=== PATIENT | female | born 1995 | race Caucasian/White ===

== ENCOUNTER 2024-12-24 17:27 | Emergency (ER) | payer MEDICAID, SELFPAY ==
--- OUTSIDE RECORDS SUMMARY | 2024-12-24 17:33 | XMS_ITS | Clinical Summary ---
Author Organization [email or web address] Address [address] Attn: Epic Prelude ADT [place] SIMON [address] Care Team Providers Care Wire Bender Name Role Phone Tracey Escoto MD Primary Care Provider [phone]- [phone] Allergies No known active allergies Medications PNV#16-Iron Fum & PS-FA-OM-3 35-1-200 mg CapsuleIndicati ons:, incidental Take 1 Capsule by mouth daily. 30 Capsule PRN 05/28/2017 Active Active Problems Problem Noted Date Diagnosed Date Atypical mole 02/12/2012 Primary genital herpes simplex infection 012 Overview (10/18/2020): Primary infection 11/27/2011 Resolved Problems Problem Noted Date Diagnosed Date Resolved Date , incidental 02/10/20122016 Overview (10/17/2020): LMP 12/21/11; EDC 09/26/12 Severe major depression with psychotic features 11/08/2010 05/28/2017 Overview (10/17/2020): History of admission to [facility] in [place] after attempting suicide by taking 4600 mg of amantadine. High risk sexual behavior Overview (10/17/2020): Sexually active since age 11. Immunizations Immunization Administration Dates Next Due (TDVAX)(7 YRS UP) TETANUS AN D DIPHTHERIA TOXOIDS, ADSORBED (2 LF OF TETANUS TOXOID AND 2 LF OF DIPHTHERIA TOXOID), 0.5ML (PF), IM 02/23/2002 HPV Vaccine 3 Dose IM VFC 02/28/2009 Family History Medical History Relation Name Comments Healthy Father Healthy Mother Other Mother Breast Cancer Other Relation Name Status Comments Father Alive Mother Alive Other Other maternal great grandmother Social History Tobacco Use Types Packs/Day Years Used Date Smoking Tobacco: Every Day Cigarettes Smokeless Tobacco: Never Alcohol Use Standard Drinks/Week Comments Yes 0 (1 standard drink = 0.6 oz pur e alcohol) Comments Unknown Sex and Gender Information Value Date Recorded Sex Assigned at Not on file Legal Sex Female 9:16 AM PLAY WRITER Gender Identity Not on file Sexual Orientation Not on file Last Filed Vital Signs Vital Sign Reading Time Taken Comments Blood Pressure 130/76 05/15/2020 10:56 AM PLAY WRITER Pulse 100 05/28/2017 10:30 AM PLAY WRITER Temperature 36.3 C (97.4 F) 09/13/2017 1:01 AM CDT Respiratory Rate 16 09/13/2017 1:01 AM CDT Oxygen Saturation - - Inhaled Oxygen Concentration - - Weight 54.4 kg (120 lb) 05/15/2020 10:56 AM PLAY WRITER Height 157.5 cm (5' 2 ) 05/15/2020 10:56 AM PLAY WRITER Body Mass Index 21.95 05/15/2020 10:56 AM PLAY WRITER Plan of Treatment Health Maintenance Due Date Last Done Comments HPV VACCINES (2 - 2-dose series) 08/28/2009 02/29/20 09 DTAP/TDAP/TD VACCINES (2 - Tdap) 2013 02/24/20 02 HEPATITIS B VACCINES (1 of 3 - 19+ 3-dose series) 09/2012 HPV/Cotest (21-29) 2015 CERVICAL CANCER SCREENING 2024 HPV/Cotest (30-65) 2024 PAP SMEAR 2024 INFLUENZA VACCINE (#1) 2025 Care Teams Wire Bender Relationship Specialty Start Date End Date Tracey Escoto MD [address] [phone] PCP - General Family Practice 07/29/13
--- OUTSIDE RECORDS SUMMARY | 2024-12-24 17:33 | XMS_ITS | Encounter Summary ---
Author Organization [facility] Address [address] [place] [address] Care Team Providers Care Shipping And Receiving Operator Name Role Phone Tracey Escoto MD Primary Care Provider [phone]- [phone] Encounter Details Date Type Department Care Team (Latest Contact Info) Description 11/06/2006 Outpatient Historical [facility] [address] 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
--- OUTSIDE RECORDS SUMMARY | 2024-12-24 17:33 | XMS_ITS | Encounter Summary ---
Author Organization [facility] Address [address] [place] [address] Care Team Providers Care Ceramic Maker Demonstrator Name Role Phone Tracey Escoto MD Primary Care Provider [phone]- [phone] Encounter Details Date Type Department Care Team (Latest Contact Info) Description 10/20/2005 [facility] [address] Kimberly Hopkins, INDUSTRIAL SPRAYPAINTER [address] [place] [address] Other Specified Viral Warts (Primary Dx) Social History Tobacco Use Types Packs/Day Years Used Date Smoking Tobacco: Never Assessed Comments Unknown Sex and Gender Information Value Date Recorded Sex Assigned at Not on file Legal Sex Female 4:30 AM TRANSACTION PROCESSOR Gender Identity Not on file Sexual Orientation Not on file documented as of this encounter Plan of Treatment Not on file documented as of this encounter Visit Diagnoses Diagnosis Other specified viral warts- Primary documented in this encounter Care Teams Ceramic Maker Demonstrator Relationship Specialty Start Date End Date Tracey Escoto MD [address] [facility] [address] [place] [address] PCP - General Family Practice 07/29/13 documented as of this encounter
--- OUTSIDE RECORDS SUMMARY | 2024-12-24 17:33 | XMS_ITS | Encounter Summary ---
Author Organization [facility] Address [address] [place] [address] Care Team Providers Care Flow Trader Name Role Phone Tracey Escoto MD Primary Care Provider [phone]- [phone] Encounter Details Date Type Department Care Team (Late st Contact Info) Description 11/11/2005 [facility] [address] [place] [id number] Keith Wilson MD [address] [place] [address] Benign Neoplasm of Skin of Other and Unspecified Parts of Face (Primary Dx) Social History Tobacco Use Types Packs/Day Years Used Date Smoking Tobacco: Never Assessed Comments Unknown Sex and Gender Information Value Date Recorded Sex Assigned at Not on file Legal Sex Female 4:30 AM RENAL SOCIAL WORKER Gender Identity Not on file Sexual Orientation Not on file documented as of this encounter Plan of Treatment Not on file documented as of this encounter Visit Diagnoses Diagnosis Benign neoplasm of skin of other and unspecified parts of face- Primary documented in this encounter Care Teams Flow Trader Relationship Specialty Start Date End Date Tracey Escoto MD [address] [place] [phone] PCP - General Family Practice 07/29/13 documented as of this encounter
--- OUTSIDE RECORDS SUMMARY | 2024-12-24 17:33 | XMS_ITS | Encounter Summary ---
Author Organization [facility] Address [address] [place] [address] Care Team Providers Care Solar Design Engineer Name Role Phone Tracey Escoto MD Primary Care Provider [phone]- [phone] Encounter Details Date Type Department Care Team ([facility] st Contact Info) Description 11/11/2005 Outpatient Historical [facility] Dermatology- [address] [place] [phone] Keith Wilson MD [address] [place] [address] Benign Neoplasm of Skin of Other and Unspecified Parts of Face (Primary Dx) Social History Tobacco Use Types Packs/Day Years Used Date Smoking Tobacco: Never Assessed Comments Unknown Sex and Gender Information Value Date Recorded Sex Assigned at Not on file Legal Sex Female 4:30 AM HANGING FLAGS DECORATOR Gender Identity Not on file Sexual Orientation Not on file documented as of this encounter Plan of Treatment Not on file documented as of this encounter Visit Diagnoses Diagnosis Benign neoplasm of skin of other and unspecified parts of face- Primary documented in this encounter Care Teams Solar Design Engineer Relationship Specialty Start Date End Date Tracey Escoto MD [address] [place] [phone] PCP - General Family Practice 07/29/13 documented as of this encounter
--- OUTSIDE RECORDS SUMMARY | 2024-12-24 17:33 | XMS_ITS | Clinical Summary ---
Author Organization [facility] Address [address] [place] [address] Care Team Providers Care Restaurant Assistant Name Role Phone rTacey Escoto MD Primary Care Provider +1- [phone] Allergies No known active allergies Medications PNV#16-Iron Fum & PS-FA-OM-3 (CONCEPT DHA) 35-1-200 mg CapsuleIndicati ons:, incidental Take 1 Capsule by mouth daily. 30 Capsule 05/28/2017 Active Active Problems Problem Noted Date Diagnosed Date Atypical mole 02/12/2012 Primary genital herpes simplex infection 012 Overview (11/27/2011): Primary infection 11/27/2011 Resolved Problems Problem Noted Date Diagnosed Date Resolved Date , incidental 02/10/20122016 Overview (02/12/2012): LMP 12/21/11; EDC 09/26/12 Severe major depression with psychotic features 11/08/2010 05/28/2017 Overview (11/29/2010): History of admission to [facility] in [place] after attempting suicide by taking 4600 mg of amantadine. High risk sexual behavior Overview (03/05/2009): Sexually active since age 11. Immunizations Immunization [...] Used Date Smoking Tobacco: Every Day Cigarettes 1 7 Smokeless Tobacco: Never Alcohol Use Standard Drinks/Week Comments Yes 0 (1 standard drink = 0.6 oz pur e alcohol) Comments No Sex and Gender Information Value Date Recorded Sex Assigned at Not on file Legal Sex Female 4:30 AM AIRCONDITIONING DRAFTING OFFICER Gender Identity Not on file Sexual Orientation Not on file Occupation Industry Job Start Date Job End Date Not on file Not on file Not on file Not on file Not on file Not on file Not on file Not on file Last Filed Vital Signs Vital Sign Reading Time Taken Comments Blood Pressure 130/76 05/15/2020 10:56 AM AIRCONDITIONING DRAFTING OFFICER Pulse 100 05/28/2017 10:30 AM AIRCONDITIONING DRAFTING OFFICER Temperature 36.3 C (97.4 F) 09/13/2017 1:01 AM CDT Respiratory Rate 16 09/13/2017 1:01 AM CDT Oxygen Saturation 100% 09/13/2017 1:01 AM CDT Inhaled Oxygen Concentration - - Weight 54.4 kg (120 lb) 05/15/2020 10:56 AM AIRCONDITIONING DRAFTING OFFICER Height 157.5 cm (5' 2 ) 05/15/2020 10:56 AM AIRCONDITIONING DRAFTING OFFICER Body Mass Index 21.95 05/15/2020 10:56 AM AIRCONDITIONING DRAFTING OFFICER Plan of Treatment Health Maintenance Due Date Last Done Comments HPV VACCINES (2 - 2-dose series) 08/28/2009 02/29/20 09 DTAP/TDAP/TD VACCINES (2 - Tdap) 2013 02/24/20 02 HEPATITIS B VACCINES (1 of 3 - 19+ 3-dose series) 09/2012 Preventative Visit-Managed Medicaid 2013 HPV/Cotest (21-29) 2015 CERVICAL CANCER SCREENING 2024 HPV/Cotest (30-65) 2024 PAP SMEAR 2024 INFLUENZA VACCINE (#1) 2025 Insurance [facility] MEDICAID Care Teams Restaurant Assistant Relationship Specialty Start Date End Date Tracey Escoto MD [address] [facility] [address] [place] [address] PCP - General Family Practice 07/29/13
[2024-12-24 17:48] VITALS: BP 113/75; PULSE 81; RESP 17; TEMP 37.1; O2SAT 97; BMI 20.5
--- NOTE | 2024-12-24 18:28 | CTR_ITS ---
PROCEDURE INFORMATION: Exam: CT Abdomen And Pelvis With Contrast Exam date and time: 12/24/2024 6:56 PM Age: 29 years old Clinical indication: Abdominal pain; Generalized; Prior surgery; Surgery date: 6+ months; Surgery type: Appy; Diffuse abd pain with diarrhea TECHNIQUE: Imaging protocol: Computed tomography of the abdomen and pelvis with contrast. Axial, coronal and sagittal reformatted images were created and reviewed. Radiation optimization: All CT scans at this facility use at least one of these dose optimization techniques: automated exposure control; mA and/or kV adjustment per patient size (includes targeted exams where dose is matched to clinical indication); or iterative reconstruction. Contrast material: OMNI 350; Contrast volume: 80 ml; Contrast route: INTRAVENOUS (IV); COMPARISON: No relevant prior studies available. RADIATION DOSE METRICS: Total DLP (mGy-cm): 320.33 FINDINGS: Liver: Unremarkable. Gallbladder and biliary ducts: Contracted gallbladder without radiodense stones. Pancreas: Unremarkable. Spleen: Unremarkable. Adrenal glands: Normal. No mass. Kidneys and ureters: No mass. No radiodense calculi. No hydronephrosis. Stomach and bowel: Nondilated, fluid-filled, mildly hyperemic loops of small bowel in the lower abdomen and pelvis. Moderate amount of retained stool in the colon. No definite bowel wall thickening. No obstruction. No pneumatosis. Appendix: Normal. Intraperitoneal space: Trace nonspecific free pelvic fluid, likely physiologic. No organized fluid collection. No free air. Vasculature: Unremarkable. No aneurysm. Lymph nodes: No pathologically enlarged lymph nodes. Urinary bladder: Mild circumferential urinary bladder wall thickening, likely secondary to underdistention. Reproductive: Unremarkable. Bones/joints: No acute osseous abnormality. Soft tissues: Unremarkable. CT/CT abdomen pelvis w con* [id number] IMPRESSION: 1. Nondilated, fluid-filled, mildly hyperemic loops of small bowel in the lower abdomen and pelvis. Mild nonspecific enteritis could produce this appearance. 2. Mild circumferential urinary bladder wall thickening, possibly secondary to underdistention. Correlate with urinalysis to exclude cystitis. 3. Additional findings, as above.
[2024-12-24 18:45] LABS: HCG Qualitative Urine. Negative (Negative)
--- NOTE | 2024-12-24 18:45 | W.ED.ABDPA2 ---
HPI - Abdominal Pain General: Chief Complaint: Abdominal Pain Stated Complaint: Abd pain severe Time Seen by Provider: 12/24/24 18:10 History of Present Illness: Chief complaint is abdominal pain. Patient states that for the last 3 days she has had abdominal pain. She has had nausea but no vomiting. No diarrhea. No significant dysuria although she states she has had a little bit of discomfort at times. No significant vaginal discharge. No new sexual partners. No rash. No fever. No headache chest pain shortness of breath cough or sore throat. She states no suspected . She has had tubal ligation. No other abdominal surgeries. Pain is a constant upper abdominal pain and primarily epigastric and left upper quadrant. She does drink alcohol occasionally. No history of pancreatitis. Related Data Previous Rx's ?Medication ?Instructions ?Recorded omeprazole 20 mg capsule,delayed 20 mg PO DAILY 14 days #14 caps 12/24/24 release ondansetron 4 mg disintegrating 4 mg PO Q6H PRN nausea and 12/24/24 tablet vomiting #10 tabs Allergies Allergy/AdvReac Type Severity Reaction Status Date / Time No Known Allergies Allergy Verified 12/24/24 17:54 Physical Exam Narrative: EXAM NARRATIVE: Patient is alert appears uncomfortable and seems to hurt with movement. No CVA tenderness. She has some left upper quadrant and epigastric tenderness without guarding. Negative Delvalle's no right upper quadrant tenderness. No lower abdominal tenderness. She moves her back and neck freely. Neck is supple. Normal conjunctiva, pupils equal reactive light full range ocular motion. Skin does not show rash in exposed areas. She has moist mucous membranes. Lung sounds are clear and heart regular rate and rhythm with no rubs or murmurs. Extremities warm well-perfused. No calf tenderness. She is alert oriented and appropriate affect. Course Vital Signs: Vital signs: Vital Signs Temperature 98.7 F 12/24/24 17:48 Pulse Rate 75 12/24/24 20:00 Respiratory Rate 15 12/24/24 20:00 Blood Pressure 105/66 12/24/24 20:00 Pulse Oximetry 100 12/24/24 20:00 Oxygen Delivery Me thod Room Air 12/24/24 17:48 MDM - Abdominal Pain Medical Decision Making Patient presents complaining of 3 days of upper abdominal pain that is getting worse. She has had nausea but no vomiting. No diarrhea. No pelvic pain or lower abdominal tenderness. She had negative Delvalle's. Differential would include peptic ulcer disease, diverticulitis, appendicitis, pyelonephritis, PID, pancreatitis, cholecystitis, among many other differential diagnoses. Patient has benign abdominal exam but significant discomfort so we will get a CT scan. She denies chest pain or shortness of breath to suggest cardiac etiology. I ordered CBC CMP lipase urinalysis and urine test and CT abdomen/pelvis with IV contrast. Patient agrees with plan after informed discussion. I ordered 1 L normal saline IV fluid bolus. White count is normal. Lipase and liver enzymes not significant elevated. Urinalysis not suggestive of infection. test was negative. CT showed findings consistent with enteritis. Mention of some bladder wall thickening. Advised patient follow-up on her test results with her doctor. She is feeling improved. Will prescribe Zofran and discharged home however advised limits of ED evaluation and CT and signs symptoms of worsening to watch and return for. Patient expressed understanding agreement with plan Lab Data 12/24/24 18:41 12/24/24 18:41 Labs/Radiology: Radiology Impressions Abdomen/Pelvis CT 12/24/24 18:28 IMPRESSION: 1. Nondilated, fluid-filled, mildly hyperemic loops of small bowel in the lower abdomen and pelvis. Mild nonspecific enteritis could produce this appearance. 2. Mild circumferential urinary bladder wall thickening, possibly secondary to underdistention. Correlate with urinalysis to exclude cystitis. 3. Additional findings, as above. Laboratory Results WBC 8.78 10^3/uL (3.29-11.43) 12/24/24 18:41 RBC 4.65 10^6/uL (3.85-5.65) 12/24/24 18:41 Hgb 14.40 g/dL (11.27-16.99) 12/24/24 18:41 Hct 44.6 % (36-47) 12/24/24 18:41 MCV 95.9 fl (85-98) 12/24/24 18:41 MCH 31.0 pg (27-33) 12/24/24 18:41 MCHC 32.3 g/dL (30-55) 12/24/24 18:41 RDW 12.5 % (12.1-15.1) 12/24/24 18:41 Plt Count 266 10^3/cmm (157-399) 12/24/24 18:41 MPV 9.4 fL (7.4-10.4) 12/24/24 18:41 Neut % (Auto) 76.3 % 12/24/24 18:41 Lymph % (Auto) 14.9 % 12/24/24 18:41 Thayer % (Auto) 7.2 % 12/24/24 18:41 Eos % (Auto) 1.1 % 12/24/24 18:41 Baso % (Auto) 0.2 % 12/24/24 18:41 Neut # (Auto) 6.69 10^3/uL (1.8-7.7) 12/24/24 18:41 Lymph # (Auto) 1.3 10^3/uL (0.8-4.8) 12/24/24 18:41 Thayer # (Auto) 0.6 10^3/uL (0.2-0.9) 12/24/24 18:41 Eos # (Auto) 0.1 10^3/uL (0.0-0.8) 12/24/24 18:41 Baso # (Auto) 0.0 10^3/uL (0.0-0.1) 12/24/24 18:41 Nucleated RBC % (auto) 0 % 12/24/24 18:41 Nucleated RBCs # 0.0 /100WBC 12/24/24 18:41 Sodium 137 mmol/L (136-145) 12/24/24 18:41 Potassium 3.4 mmol/L (3.5-5.1) L 12/24/24 18:41 Chloride 104 mmol/L (98-107) 12/24/24 18:41 Carbon Dioxide 22 mmol/L (22-29) 12/24/24 18:41 Anion Gap 14.4 (5-19) 12/24/24 18:41 BUN 8 mg/dL (6-20) 12/24/24 18:41 Creatinine 0.5 mg/dL (0.5-0.9) 12/24/24 18:41 GFR Calculation 144.9 mL/min (90-130) H 12/24/24 18:41 Glucose 76 mg/dL (65-115) 12/24/24 18:41 Calculated Osmolality 281 mOsm/kg (285-295) L 12/24/24 18:41 Calcium 8.6 mg/dL (8.5-10.5) 12/24/24 18:41 Total Bilirubin 0.6 mg/dL (0.15-1.2) 12/24/24 18:41 AST 12 U/L (0-32) 12/24/24 18:41 ALT 9 U/L (0-33) 12/24/24 18:41 Alkaline Phosphatase 76 U/L (35-105) 12/24/24 18: Total Protein 6.4 g/dL (6.6-8.7) L 12/24/24 18:41 Albumin 3.9 g/dL (3.5-5.2) 12/24/24 18: Globulin 2.5 g/dL (1.3-4.6) 12/24/24 18: Lipase 27 U/L (13-60) 12/24/24 18:41 HCG, Qual Negative (Negative) 12/24/24 18: Urine Color Yellow (Yellow) 12/24/24 18: Urine Appearance Clear (CLEAR) 12/24/24 18: Urine pH 6.5 (5-7) 12/24/24 18: Ur Specific [place] 1.022 (1.005-1.030) 12/24/24 18: Urine Protein Negative (Negative) 12/24/24 18: Urine Glucose (UA) Negative (Normal) 12/24/24 18: Urine Ketones Negative (Negative) 12/24/24 18: Urine Blood Negative (Negative) 12/24/24 18: Urine Nitrate Negative (Negative) 12/24/24 18: Urine Bilirubin Negative (Negative) 12/24/24 18: Urine Urobilinogen 1.0 mg/dL (Negative) 12/24/24 18:31 Ur Leukocyte Esterase Negative (Negative) 12/24/24 18: Urine RBC 0-2 /hpf (0-2) 12/24/24 18: Urine WBC 0-5 /hpf (0-5) 12/24/24 18:31 Ur Squamous Epith Cells 0-5 /hpf (0-5) 12/24/24 18:31 Amorphous Sediment Not Reportable 12/24/24 18: Urine Bacteria None seen /hpf (NONE) 12/24/24 18:31 Hyaline Casts 0.40 /lpf 12/24/24 18:31 C. trachomatis (PCR) Not detected (Negative) 12/24/24 18:32 C.trachomatis RNA (TMA) Cancelled 12/24/24 18:31 Chlamydia/GC Comment Cancelled 12/24/24 18:31 N. gonorrhoeae (PCR) Not detected (Negative) 12/24/24 18:32 N.gonorrhoeae RNA (TMA) Cancelled 12/24/24 18:31 All radiology interpretation(s) finalized by discharge Discharge Plan Discharge Patient Disposition: Home Clinical Impression: Abdominal pain Condition: Stable Prescriptions: New ondansetron 4 mg tablet,disintegrating 4 mg PO Q6H PRN (Reason: nausea and vomiting) Qty: 10 0RF omeprazole 20 mg capsule,delayed release(DR/EC) 20 mg PO DAILY 14 Days Qty: 14 0RF Discharge Orders: Discharge ED (Routine); Ordered 12/24/24 Ordered By: Arthur Love Patient Instructions: Abdominal Pain (ED), Pain Management, Patient Portal & Maksim Instructions Activity Restrictions/Additional Instructions: Please follow-up on your test results with your doctor. Please come back if worsening pain, fever, vomiting, getting worse instead of better, any concerns. Make sure to drink plenty of fluids. Print Language: Greenlandic Coding Level of Care Code ED Resource Conservation Specialist for Madonna Scott
[2024-12-24 18:47] LABS: Hematocrit 44.6 % (36-47); Hemoglobin 14.40 g/dL (11.27-16.99); Mean Corpuscular HGB Conc 32.3 g/dL (30-55); Mean Corpuscular Hemoglobin 31.0 pg (27-33); Mean Corpuscular Volume 95.9 fl (85-98); Nucleated Red Blood Cells % 0 %; Platelet Count 266 10^3/cmm (157-399); Red Blood Count 4.65 10^6/uL (3.85-5.65); White Blood Count 8.78 10^3/uL (3.29-11.43)
[2024-12-24 18:48] LABS: Glucose Urine UA Negative (Normal); Nitrate Urine Negative (Negative); Specific Gravity, Urine 1.022 (1.005-1.030)
[2024-12-24 18:54] VITALS: BP 114/70; PULSE 74; O2SAT 98
[2024-12-24 18:54] LABS: Add Urine Microscopic? YES
[2024-12-24 19:00] VITALS: BP 106/61; PULSE 86; RESP 16; O2SAT 98
[2024-12-24] MEDS: iohexol 350 mg/mL 500 mL Btl (per mL) IV (19:02)
[2024-12-24 19:03] LABS: Alanine Aminotransferase 9 U/L (0-33); Albumin Level 3.9 g/dL (3.5-5.2); Alkaline Phosphatase 76 U/L (35-105); Anion Gap 14.4 (5-19); Aspartate Amino Transferase 12 U/L (0-32); Blood Urea Nitrogen 8 mg/dL (6-20); Calcium 8.6 mg/dL (8.5-10.5); Carbon Dioxide 22 mmol/L (22-29); Chloride 104 mmol/L (98-107); Creatinine Clr Calc Pharmacy 141.7886; Globulin 2.5 g/dL (1.3-4.6); Glucose 76 mg/dL (65-115); Lipase 27 U/L (13-60); Osmolality Calculated 281 mOsm/kg (285-295); Potassium 3.4 mmol/L (3.5-5.1); Sodium 137 mmol/L (136-145); Total Protein 6.4 g/dL (6.6-8.7)
[2024-12-24 20:00] VITALS: BP 105/66; PULSE 75; RESP 15; O2SAT 100
[2024-12-24 20:15] LABS: Neisseria Gonorrhea NOT DETECTED (Negative)
== END 2024-12-24 21:03 | disposition home or self-care (01) ==
PROVIDERS: Emergency Provider Emergency Medicine
DX: R10.9 Unspecified abdominal pain (principal)
CPT/HCPCS: 74177; 80053; 81001; 81025; 83690; 85025; 87491; 87591; 96360; 96361; 99285; J7030